=== PATIENT | female | born 1940 ===

== ENCOUNTER 2017-04-28 18:09 | Inpatient (IN) | payer MEDICARE, MEDICAID ==
[2017-04-28 18:20] VITALS: BMI 25.0
--- NOTE | 2017-04-28 19:01 | C.PDOC ---
History Of Present Illness Carol Natarajan is a 76 year old female, with a past medical history of HTN, pre-diabetes, and hypercholesterolemia, who was brought to the emergency department via EMS accompanied by family members for syncope episode prior to arrival. Patient reports she was having dinner when she began feeling dizzy and lightheaded before losing consciousness. Per family members, patient lost consciousness, her fingers clenched and her mouth opened, she was unresponsive for about 10 minutes. Patient reports a headache and difficulty breathing after episode but states she felt better after the EMT gave her O2. Family members state that patient was feeling cold before dinner, they thought she was going to get sick so they gave her a Nyquil. She denies any current headache, shortness of breathm or chest pain. No further medical complaints. PMD: None provided. Time Seen by Provider: 04/28/17 18:20 Chief Complaint (Nursing): Dizziness/Lightheaded History Per: Patient History/Exam Limitations: no limitations Onset/Duration Of Symptoms: Hrs (PARKING MANAGER) Current Symptoms Are (Timing): Better Number Of Syncopal Episodes: 1 Activity At Onset Of Symptoms: Had Just Stood up Associated Symptoms Preceding Syncopal Episode: Lightheadedness Fall Associated With With Symptoms: Yes Additional History Per: Family Past Medical History Reviewed: Historical Data, Nursing Documentation, Vital Signs Vital Signs: Last Vital Signs Temp 98.1 F 05/01/17 07:30 Pulse 79 05/01/17 10:54 Resp 20 05/01/17 07:30 BP 118/65 05/01/17 10:54 Pulse Ox 95 05/01/17 07:30 - Medical History PMH: Diabetes (pre-diabetes), HTN, Hypercholesterolemia Surgical History: No Surg Hx Family History: States: Unknown Family Hx - Social History Hx Tobacco Use: No Hx Alcohol Use: No Hx Substance Use: No - Immunization History Hx Tetanus Toxoid Vaccination: No Hx Influenza Vaccination: No Hx Pneumococcal Vaccination: No Review Of Systems Except As Marked, All Systems Reviewed And Found Negative. Constitutional: Negative for: Fever, Chills Cardiovascular: Negative for: Chest Pain Respiratory: Negative for: Cough, Shortness of Breath Gastrointestinal: Negative for: Nausea, Vomiting, Abdominal Pain, Diarrhea Neurological: Negative for: Weakness, Numbness Physical Exam - Physical Exam Appears: Well, Non-toxic, No Acute Distress Skin: Normal Color, Warm, Dry Head: Atraumatic, Normacephalic Eye(s): bilateral: Normal Inspection Oral Mucosa: Moist Neck: Supple Chest: Symmetrical, No Tenderness Cardiovascular: Rhythm Regular Respiratory: No Decreased Breath Sounds, No Accessory Muscle Use, No Rales, No Rhonchi, No Wheezing Gastrointestinal/Abdominal: Soft, No Tenderness, No Guarding, No Rebound Extremity: No Swelling Neurological/Psych: Oriented x3, Normal Speech, Normal Cognition, Other (no focal deficits) ED Course And Treatment - Laboratory Results Result Diagrams: 05/01/17 07:54 05/01/17 07:54 O2 Sat by Pulse Oximetry: 95 (RA) Pulse Ox Interpretation: Normal Medical Decision Making Medical Decision Making: EKG: Normal sinus rhythm. Rate: 79bpm. Normal axis, normal intervals. Disposition - Disposition Disposition: HOSPITALIZED Disposition Time: 22:16 Condition: STABLE - Clinical Impression Clinical Impression: Loss of consciousness - Scribe Statement Timmy Foster All medical record entries made by the Scribe were at my direction and personally dictated by me. I have reviewed the chart and agree that the record accurately reflects my personal performance of the history, physical exam, medical decision making, and the department course for this patient. I have also personally directed, reviewed, and agree with the discharge instructions and disposition.
[2017-04-28 19:22] LABS: BASO % 0.4 % (0.0-2.0); EOS # 0.1 K/uL (0.0-0.7); EOS % 1.5 % (0.0-4.0); HEMOGLOBIN 12.9 g/dL (11.0-16.0); LYMPH # 1.4 K/uL (1.0-4.3); LYMPH % 17.3 % (20.0-40.0); MEAN CELL VOLUME 85.9 fL (81.0-99.0); MEAN CORPUSCULAR HEMOGLOBIN 29.5 pg (27.0-31.0); MEAN CORPUSCULAR HGB CONC 34.4 g/dL (33.0-37.0); MEAN PLATELET VOLUME 7.5 fL (7.2-11.7); MONO # 1.1 K/uL (0.0-0.8); MONO % 13.1 % (0.0-10.0); NEUT # 5.6 K/uL (1.8-7.0); NEUT % 67.7 % (50.0-75.0); RBC 4.35 Mil/uL (3.80-5.20); RED CELL DISTRIBUTION WIDTH 13.7 % (11.5-14.5); WHITE BLOOD COUNT 8.3 K/uL (4.8-10.8)
[2017-04-28 19:32] LABS: SQUAMOUS EPITHIAL 5 /hpf (0-5); URINE BACTERIA RARE (<OCC); URINE BILIRUBIN NEGATIVE (NEGATIVE); URINE BLOOD 1+ (NEGATIVE); URINE CLARITY Clear (Clear); URINE COLOR Yellow (YELLOW); URINE GLUCOSE (UA) NORMAL (Normal); URINE LEUKOCYTE ESTERASE NEG Leu/uL (Negative); URINE NITRATE NEGATIVE (NEGATIVE); URINE PROTEIN NEGATIVE (NEGATIVE); URINE UROBILINOGEN NORMAL mg/dL (0.2-1.0)
[2017-04-28 19:35] LABS: ALBUMIN 4.2 g/dL (3.5-5.0); ALT/SGPT 27 U/L (9-52); AST/SGOT 36 U/L (14-36); BLOOD UREA NITROGEN 28 mg/dL (7-17); CALCIUM 8.8 mg/dl (8.6-10.4); GFR AFRICAN-AMERICAN 44; GFR NON-AFRICAN AMERICAN 36
--- NOTE | 2017-04-28 19:51 | CT ---
EXAM: CT Head Without Intravenous Contrast CLINICAL HISTORY: 76 years old, female; Signs and symptoms; Other: Loc TECHNIQUE: Axial computed tomography images of the head/brain without intravenous contrast. All CT scans at this facility use one or more dose reduction techniques, viz.: automated exposure control; ma/kV adjustment per patient size (including targeted exams where dose is matched to indication; i.e. head); or iterative reconstruction technique. Coronal and sagittal reformatted images were created and reviewed. COMPARISON: No relevant prior studies available. FINDINGS: Brain: Mild atrophy. No intracranial hemorrhage. No mass. Few scattered foci of decreased attenuation within periventricular/subcortical white matter. No definite edema. Ventricles: No hydrocephalus. Bones/joints: No acute fracture. Degenerative changes of temporomandibular joints. Soft tissues: Unremarkable. Vasculature: Atherosclerotic disease of intracranial arteries. Sinuses: Scattered minimal mucosal thickening. Mastoid air cells: No mastoid effusion. Orbits: Unremarkable as visualized. IMPRESSION: 1. Nonspecific white matter changes. Acute infarction may be CT occult within first 24 hours. If a focal deficit persists, consider followup CT or MRI for further evaluation. 2. Incidental/non-acute findings are described above.
[2017-04-28] MEDS ORDERED: Sodium Chloride 0.9% 1,000 ML IV ONE (20:36)
[2017-04-28] MEDS ORDERED: Potassium Chloride 20 mEq ER Tab PO STA (20:37)
[2017-04-28] MEDS ORDERED: Potassium Chloride 20 mEq ER Tab PO ONE (20:49)
[2017-04-29 03:03] VITALS: RESP 20
[2017-04-29] MEDS: (Novolin R) Insulin Human Regular 100 units/ml vial SC SCH ×6 (08:05→21:56)
[2017-04-29 08:26] LABS: BASO % 0.5 % (0.0-2.0); EOS # 0.2 K/uL (0.0-0.7); EOS % 3.5 % (0.0-4.0); HEMOGLOBIN 11.6 g/dL (11.0-16.0); LYMPH # 1.8 K/uL (1.0-4.3); LYMPH % 31.4 % (20.0-40.0); MEAN CELL VOLUME 87.5 fL (81.0-99.0); MEAN CORPUSCULAR HEMOGLOBIN 29.7 pg (27.0-31.0); MEAN CORPUSCULAR HGB CONC 33.9 g/dL (33.0-37.0); MEAN PLATELET VOLUME 8.4 fL (7.2-11.7); MONO # 0.9 K/uL (0.0-0.8); MONO % 15.3 % (0.0-10.0); NEUT # 2.8 K/uL (1.8-7.0); NEUT % 49.3 % (50.0-75.0); RBC 3.92 Mil/uL (3.80-5.20); WHITE BLOOD COUNT 5.7 K/uL (4.8-10.8)
[2017-04-29 09:03] LABS: ALB/GLOB RATIO 1.1 (1.0-2.1); ALBUMIN 3.9 g/dL (3.5-5.0); ALT/SGPT 28 U/L (9-52); AST/SGOT 32 U/L (14-36); BLOOD UREA NITROGEN 22 mg/dL (7-17); CALCIUM 8.3 mg/dl (8.6-10.4); GFR AFRICAN-AMERICAN 53; GFR NON-AFRICAN AMERICAN 44; HDL CHOLESTEROL 39 mg/dL (30-70); MAGNESIUM 1.7 mg/dL (1.6-2.3)
[2017-04-29 09:04] LABS: LDL CHOLESTEROL 105 mg/dL (0-129)
--- NOTE | 2017-04-29 11:17 | CP.PCM.PN ---
Subjective - Date & Time of Evaluation Date of Evaluation: 04/29/17 Time of Evaluation: 11:20 - Subjective Subjective: [facility] #[id number] Objective - Vital Signs/Intake and Output Vital Signs (last 24 hours): Temp Pulse Resp BP Pulse Ox 98.9 F 93 H 20 119/67 99 04/29/17 08:24 04/29/17 08:24 04/29/17 08:24 04/29/17 08:24 04/29/17 08:24 Intake and Output: 04/29/17 04/29/17 06:59 18:59 Intake Total 240 Balance 240 - Medications Medications: Current Medications Amlodipine Besylate (Norvasc) 10 mg PO DAILY [facility] Last Admin: 04/29/17 10:56 Dose: 10 mg Aspirin (Aspirin) 325 mg PO DAILY [facility] Last Admin: 04/29/17 10:56 Dose: 325 mg Glimepiride (Amaryl) 1 mg PO DAILY [facility] Last Admin: 04/29/17 09:00 Dose: Not Given Insulin Human Regular (Novolin R) 1 unit SC [facility] PRN Reason: Protocol Last Admin: 04/29/17 08:05 Dose: Not Given Losartan Potassium (Cozaar) 50 mg PO DAILY [facility] Last Admin: 04/29/17 10:56 Dose: 50 mg - Labs Labs: 04/29/17 08:12 04/29/17 08:12
--- NOTE | 2017-04-29 12:27 | RAD ---
PROCEDURE: CHEST RADIOGRAPH, 1 VIEW HISTORY: syncope COMPARISON: None available. FINDINGS: LUNGS: Clear. PLEURA: No pneumothorax or pleural fluid seen. CARDIOVASCULAR: Normal. OSSEOUS STRUCTURES: No significant abnormalities. VISUALIZED UPPER ABDOMEN: Normal. OTHER FINDINGS: None. IMPRESSION: No active disease.
--- NOTE | 2017-04-30 00:17 | HP ---
CHIEF COMPLAINT: Patient had loss of consciousness for about 8 to 10 minutes as per the patient's family yesterday while getting up from the dinner table. HISTORY OF PRESENT ILLNESS: Ms. Otilia Natarajan is a 76-year-old female with past medical history of hypertension, diabetes mellitus who has been following up with doctors from [place], was visiting family in [place] yesterday while this happened. All the history obtained from the patient's daughter who is at bedside as the patient speaks only Bulgarian. As per the patient's daughter, on her way to [place], she was complaining of feeling cold as the patient's and other family members were suffering from flu all week. They gave the patient NyQuil in the afternoon; she slept for two hours; she woke up around 5 p.m., was having dinner around 5 p.m., sitting at the table while she was getting up from the dinner table; she was complaining of heaviness in the head and lightheaded and dizziness and she was slumping over at which point family member got her and put her in a chair. She was unconscious for about 8 to 10 minutes as per the family member. Denied any urinary incontinence or tongue bite, but family members claim that her fingers were contracted and mouth was tight and biting her teeth. Denied any incontinence. Patient felt that she blacked out and did not aware of the surroundings when the 911 came. Patient was awake after 8 to 10 minutes. Patient started complaining of heaviness in the head and dizziness and she felt like she was spinning around. Denied any nausea, vomiting. Denied any chest pain, shortness of breath, or wheezing. Denied any urinary complaints. Denied any leg pains or leg cramps. Denied any other neurologic symptoms. Denied any other symptoms after waking up. She felt dizzy and heaviness in the head until last night and this morning, she is feeling much better. Denied any other complaints this morning. Able to ambulate to the bathroom without assistance. PAST MEDICAL HISTORY: As described, hypertension, diabetes mellitus, hyperlipidemia, questionable kidney problem, following up with the electronic health records specialist in the city. PAST SURGICAL HISTORY: Denies any past surgical history. FAMILY HISTORY: Family history of coronary artery disease in the sister. Mother from uterine cancer. PERSONAL HISTORY: She is , having three children, retired. Living with her and the daughter. SOCIAL HISTORY: Denies smoking, alcohol, or any other drug abuse. ALLERGIES: NO KNOWN DRUG ALLERGIES. MEDICATIONS: Amlodipine 10 mg daily, losartan 50 mg daily, glimepiride 1 mg daily. REVIEW OF SYSTEMS: As described in history of present illness. All other systems reviewed and were found to be negative. PHYSICAL EXAMINATION: GENERAL: Elderly female, lying in bed, in no acute distress. VITAL SIGNS: Blood pressure 119/67, pulse 93, respirations 20, temperature 98.9 degrees Fahrenheit, O2 sat 99% on 2 L nasal cannula. HEENT: Pupils are equal, round, and reacting to light and accommodation. Extraocular muscles intact. No icterus. No pallor. No oral thrush. No pharyngeal congestion. NECK: Supple. No JVD. No thyromegaly. CHEST: Moving equally bilaterally on respiration. LUNGS: Bilateral vesicular breath sounds. No wheezing, no rhonchi. CARDIOVASCULAR SYSTEM: S1 and S2 present, regular. ABDOMEN: Soft, nontender, bowel sounds present. No guarding, no rigidity, no rebound tenderness noted. CENTRAL NERVOUS SYSTEM: Alert, awake, oriented x3. No focal deficits noted. EXTREMITIES: No edema. Palpable peripheral pulses. LABORATORY DATA: Her labs from ED, WBC 8.3, hemoglobin 12.9, hematocrit 37.4, platelets 271. Sodium 131, potassium 3.2, chloride 93, bicarb 28, BUN 28, creatinine 1.4, glucose 105, calcium 8.8. Total bilirubin 0.5, AST 36, ALT 27, alkaline phosphatase 73. Cardiac enzymes negative. Total protein 8.5, albumin 4.2. Triglycerides 109, cholesterol 182, LDL 104, HDL 39. UA: 1+ blood, rbc 6, otherwise negative. Chest x-ray done from ED, no active disease. CT scan of the head, nonspecific white matter changes, atherosclerotic disease of intracranial arteries. EKG, normal sinus rhythm at 79 beats per minute. No acute STT changes noted. ASSESSMENT AND PLAN: Elderly female with history of hypertension, diabetes mellitus, chronic kidney disease, hyperlipidemia who has been following up with doctors from [place], was complaining of cold-like symptoms. Patient was given NyQuil and after two hours of sleep, she woke up; while sitting at the dinner table and she stood up, she had an episode of sudden loss of consciousness associated with heaviness in the head and lasted for 10 minutes. Patient complaining of heaviness in the head even after she as aware of the surroundings. Patient is being admitted for further management. 1. Prolonged loss of consciousness, rule out syncope versus seizure, rule out secondary to NyQuil, rule out other causes. 2. Mild hypokalemia. 3. History of hypertension. 4. History of diabetes mellitus. 5. History of chronic kidney disease. PLAN: Patient is being admitted to telemetry. We will do neuro checks, serial EKGs. Check echocardiogram. We will check EEG. Initial CT is negative. We will restart her home medications. Her blood pressure is controlled. We will give aspirin 325 mg p.o. daily. Accu-Cheks q.a.c. and at bedtime. Deep venous thrombosis prophylaxis with heparin. We will obtain Neurology evaluation with Dr. James. We will do echocardiogram, carotid Doppler. We will add further recommendation as her clinical course progresses. Fly Quan MD
--- NOTE | 2017-04-30 01:02 | CON ---
NEUROLOGY CONSULTATION DATE: REQUESTING PHYSICIAN: Dr. Quan. REASON FOR CONSULTATION: Syncopal episode. HISTORY OF PRESENT ILLNESS: The patient is a 76-year-old lady with past medical history of hypertension, diabetes mellitus, hyperlipidemia, who was brought to the emergency room because of syncopal episode by the family, witnessed by daughter and son-in-law. The patient's daughter states that she was not feeling well before the episode. She was feeling cold when everybody was hot in the room, and she was given NyQuil a few hours before, and the patient while she was having dinner, she felt dizzy and when she tried to stand up, felt like she collapse and lost her consciousness. As per family, the patient's loss of consciousness associated with stiffness of her upper extremities and cramping of the upper extremities without jerky movement of the upper extremities, and she was out, not responding to questions, approximately lasting more than 10 minutes. The patient was complaining of shortness of breath and headache after the episode. The patient was anxious and scared after the episode, and then gradually after the arrival of EMT, the patient was given oxygen, and the patient immediately felt better. This is the first episode ever she had in her life of loss of consciousness, no seizures in the past. Denies history of headache, although patient is complaining of arthritis as well, complaining of knee pain on and off. PAST MEDICAL HISTORY: As mentioned above. SOCIAL HISTORY: Denies smoking, ethanol, or drug abuser. ALLERGIES: NO KNOWN ALLERGIC REACTIONS TO MEDICATIONS. MEDICATIONS: Glimepiride, aspirin, losartan, heparin, amlodipine, insulin. REVIEW OF SYSTEMS: As per H and P and ER notes, reviewed. PHYSICAL EXAMINATION: VITAL SIGNS: Blood pressure 181/74, pulse 95, respirations 18, temperature 98.7. MENTAL STATUS: The patient is alert, awake, and oriented x3. Although the patient's daughter was translating, the patient is Hungarian speaking. Normal naming, repetition, and comprehension. No agnosia. No apraxia. No right to left confusion or finger agnosia. CRANIAL NERVES: Pupils 2 mm, bilaterally reactive. Status post left eye cataract surgery. There is a mild cataract in the right eye. No field defect. Tongue midline. Gag intact. Accessory nerve intact. No hearing deficit. MOTOR: Normal tone in upper and lower extremities. No pronator drift. No tremors, action, rest and postural. No myoclonus. No vesiculation. Upper extremities deltoid, elbow and occupational therapy director 5/5. Lower extremities, hip flexion, knee flexion, extension and ankle 5/5. Deep tendon reflexes are 1 in upper extremities, absent at the knee and ankles, plantar flexion. SENSORY: Pinprick, light touch intact. Coordination: [id number] intact. Romberg is negative. The patient is able to stand on one foot. LABORATORY DATA: White blood cells 5.7, red blood cells 3.92, hemoglobin 11.6, hematocrit 34. Sodium 131, potassium 3.2, chloride 93, carbon dioxide 28, anion gap 14, BUN 28, creatinine 1.4. IMAGING DATA: CAT scan of the brain reviewed. I have reviewed the CAT scan of the brain, did not reveal significant findings except for very minimal periventricular white matter disease. IMPRESSION: Syncopal episode probably secondary to postural hypotension causing patient spastic upper extremities. I doubt that if it is a seizure, tonic seizure. The patient had NyQuil before the episode and patient was dizzy, and the episode started when she changed position from sitting to standing; in addition, the patient's blood pressure was on low side at admission. CAT scan negative. Carotid Doppler and EEG has been requested. Above discussed with the daughter who is translating at length. All her questions and concerns were answered at length. Thank you for the consultation, and Dr. James will follow up the patient tomorrow. Werner Walker MD
[2017-04-30] MEDS: (Novolin R) Insulin Human Regular 100 units/ml vial SC SCH ×4 (07:12→21:40)
--- NOTE | 2017-04-30 08:50 | PN ---
DATE: 04/30/2017 NEUROLOGICAL PROBLEM: Syncopal attack related to viral syndrome. PHYSICAL EXAMINATION: VITAL SIGNS: Blood pressure 117/68, mean artery pressure of 84, respiratory rate 16, and temperature afebrile. NEUROLOGICAL: The patient was seen by Dr. Walker over the weekend for the syncopal attack. His consideration is appreciated and workup is in progress. At present, the patient is communicable only in Ukrainian. She is awake, alert, oriented to person, place and time. Speech is clear. Naming, repetition, fluency, comprehension all within normal. She moves all 4 extremities against the gravity. No right and left confusion. Cranial nerve examination grossly intact. Motor examination, 5/5. Deep tendon reflexes are trace. Plantars are downgoing. Sensory examination grossly intact as well. The patient is ambulatory on her own. Her recommended investigations are still pending. The patient should be hydrated well. The patient seems to be diabetic and diet control should be followed. From neurological point of view, the patient was placed on aspirin that has to be continued for now. The patient will be followed while she is in the hospital. Cameron James MD
--- NOTE | 2017-04-30 13:26 | CP.PCM.PN ---
Subjective - Date & Time of Evaluation Date of Evaluation: 04/30/17 Time of Evaluation: 13:40 - Subjective Subjective: Progress note dictated #[id number] Objective - Vital Signs/Intake and Output Vital Signs (last 24 hours): Temp Pulse Resp BP Pulse Ox 98.2 F 95 H 20 114/67 95 04/30/17 07:20 04/30/17 11:55 04/30/17 07:20 04/30/17 09:26 04/30/17 07:20 Intake and Output: 04/30/17 04/30/17 06:59 18:59 Intake Total 500 Balance 500 - Medications Medications: Current Medications Amlodipine Besylate (Norvasc) 10 mg PO DAILY [facility] Last Admin: 04/30/17 09:29 Dose: 10 mg Aspirin (Aspirin) 325 mg PO DAILY [facility] Last Admin: 04/30/17 09:30 Dose: 325 mg Glimepiride (Amaryl) 1 mg PO DAILY [facility] Last Admin: 04/30/17 09:30 Dose: 1 mg Heparin Sodium (Porcine) (Heparin) 5,000 units SC Q12H [facility] Last Admin: 04/30/17 11:26 Dose: 5,000 units Insulin Human Regular (Novolin R) 0 unit SC ACHS [facility] PRN Reason: Protocol Last Admin: 04/30/17 11:14 Dose: Not Given Losartan Potassium (Cozaar) 50 mg PO DAILY [facility] Last Admin: 04/30/17 09:30 Dose: 50 mg - Labs Labs: 04/29/17 08:12 04/29/17 08:12 APTT 33 SECONDS (21-34) 04/29/17 13:29
--- NOTE | 2017-04-30 23:31 | CARD ---
APPROVED REPORT EKG Measurement Heart [id number] <Conclusion> Normal sinus rhythm Normal ECG
--- NOTE | 2017-05-01 01:42 | PN ---
DATE: 04/30/2017 SUBJECTIVE: The patient was seen and examined at bedside. Patient is feeling much better. Denies any dizziness. Denies any new episodes of loss of consciousness, has been ambulating. REVIEW OF SYSTEMS: All other systems reviewed and were found to be negative. PHYSICAL EXAMINATION: GENERAL: An elderly female lying in bed in no acute distress. VITAL SIGNS: Blood pressure 101/55, pulse 78, respirations 20, temperature 98.1 degree Fahrenheit, O2 sat 95% on room air. HEENT: Pupils equal, round, reacting to light and accommodation. Extraocular muscles are intact. No icterus. No pallor. No oral thrush. No pharyngeal congestion. NECK: Supple. No JVD. LUNGS: Bilateral vesicular breath sounds. No wheezing. No rhonchi. CARDIOVASCULAR SYSTEM: S1 and S2 present, regular. ABDOMEN: Soft, nontender. Bowel sounds present. No guarding. No rigidity. No rebound tenderness noted. CENTRAL NERVOUS SYSTEM: Alert, awake, oriented x3. No focal deficits noted. EXTREMITIES: No edema. Palpable peripheral pulses. MEDICATIONS: Include Norvasc 10 mg daily, aspirin 325 mg daily, Amaryl 1 mg p.o. daily, heparin 5000 units subcutaneous q. 12 hours, losartan 50 mg p.o. daily. Accu-Cheks 101, 113, 146, 83, 105. EKG results pending. Carotid Doppler pending. EEG not done yet. ASSESSMENT AND PLAN: An elderly female with history of hypertension, diabetes mellitus, hyperlipidemia, chronic kidney disease, admitted for syncope versus seizure after taking NyQuil. Patient's neurologic workup is in progress. Echo, carotid Doppler results pending. EEG is not done. Her Accu-Cheks are fair. Blood pressure is slightly low this afternoon. We will continue with current medications. Neurology consult and followup appreciated. We will follow up with the pending results. If patient is hemodynamically stable and cleared neurologically, we will plan discharging the patient home in a.m. Fly Quan MD
[2017-05-01] MEDS: (Novolin R) Insulin Human Regular 100 units/ml vial SC SCH ×2 (07:33→12:00)
[2017-05-01 08:08] LABS: BASO % 0.4 % (0.0-2.0); EOS # 0.3 K/uL (0.0-0.7); EOS % 5.9 % (0.0-4.0); HEMOGLOBIN 11.6 g/dL (11.0-16.0); LYMPH # 2.3 K/uL (1.0-4.3); LYMPH % 48.5 % (20.0-40.0); MEAN CELL VOLUME 86.8 fL (81.0-99.0); MEAN CORPUSCULAR HEMOGLOBIN 29.3 pg (27.0-31.0); MEAN CORPUSCULAR HGB CONC 33.7 g/dL (33.0-37.0); MEAN PLATELET VOLUME 8.1 fL (7.2-11.7); MONO # 0.6 K/uL (0.0-0.8); MONO % 11.6 % (0.0-10.0); NEUT # 1.6 K/uL (1.8-7.0); NEUT % 33.6 % (50.0-75.0); RBC 3.97 Mil/uL (3.80-5.20); RED CELL DISTRIBUTION WIDTH 13.8 % (11.5-14.5); WHITE BLOOD COUNT 4.8 K/uL (4.8-10.8)
[2017-05-01 08:19] LABS: ALBUMIN 3.6 g/dL (3.5-5.0); ALT/SGPT 26 U/L (9-52); AST/SGOT 28 U/L (14-36); BLOOD UREA NITROGEN 22 mg/dL (7-17); CALCIUM 8.1 mg/dl (8.6-10.4); GFR AFRICAN-AMERICAN > 60; GFR NON-AFRICAN AMERICAN 54
[2017-05-01 08:23] VITALS: TEMP 98.1; O2SAT 95
--- NOTE | 2017-05-01 09:37 | PN ---
DATE: 05/01/2017 NEUROLOGICAL PROBLEM: Status post syncopal episode, probably drug induced. PHYSICAL EXAMINATION: VITAL SIGNS: Blood pressure 106/63, mean arterial pressure of 77, respiratory rate 18, temperature 98.3, pulse rate 91. ASSESSMENT AND PLAN: The patient is up, already talking with her friend over the phone. No new episodes happened from neurological point of view or cardiac point of view. The patient is hemodynamically stable. Recommended electroencephalogram is still pending. At this point, no need to keep her just for electroencephalogram in the hospital. The patient could be having this test as outpatient. Probably, I do recommend extended or ambulatory EEG. In the meantime, no further intervention is needed from neurological point of view. If medically stable, the patient can be discharged and should have followup visit with her own neurologist. Cameron James MD
[2017-05-01] MEDS ORDERED: Potassium Chloride 20 mEq ER Tab PO ONE (10:00)
--- NOTE | 2017-05-01 10:50 | VASCLAB ---
PROCEDURE: HISTORY: syncope COMPARISON: None available. TECHNIQUE: Grayscale and duplex Doppler evaluation of the cervical carotid and vertebral arteries were performed. The common carotid, carotid bifurcations and cervical Internal Carotid Artery (ICA) and proximal External Carotid Artery (ECA) were evaluated. The vertebral arteries were evaluated for gross patency and flow direction. Report prepared by Ziggy Dalal, BS, RVT FINDINGS: RIGHT CAROTID ARTERIES: 1. Common Carotid Artery: No significant focal plaque formation of the right common carotid artery. Maximum Peak Systolic velocity: 108 cm/sec: End-diastolic velocity 21 cm/sec. 2. Carotid Bifurcation: plaque formation. Maximum Peak Systolic velocity: 61 cm/sec: End-diastolic velocity 16 cm/sec. 3. Internal Carotid Artery: Plaque description: 3.1. Proximal Segment: Peak systolic velocity 78 cm/sec: End-diastolic velocity 24 cm/sec - % stenosis 0-15% 3.2. Middle Segment: Peak systolic velocity 81 cm/sec: End-diastolic velocity 25 cm/sec - % stenosis 0-15% 3.3. Distal Segment: Peak systolic velocity 51 cm/sec: End-diastolic velocity 17 cm/sec - % stenosis 0-15% 4. External Carotid Artery: No significant focal plaque formation. Peak systolic velocity 155 cm/sec 5. ICA/CCA Ratio: 1.2 LEFT CAROTID ARTERIES: 1. Common Carotid Artery: No significant focal plaque formation of the left common carotid artery. Maximum Peak Systolic velocity: 75 cm/sec: End-diastolic velocity 19 cm/sec. 2. Carotid Bifurcation: plaque formation. Maximum Peak Systolic velocity: 116 cm/sec: End-diastolic velocity 24 cm/sec. 3. Internal Carotid Artery: Plaque description: 3.1. Proximal Segment: Peak systolic velocity 85 cm/sec: End-diastolic velocity 22 cm/sec - % stenosis 0-15% 3.2. Middle Segment: Peak systolic velocity 94 cm/sec: End-diastolic velocity 33 cm/sec - % stenosis 0-15% 3.3. Distal Segment: Peak systolic velocity 93 cm/sec: End-diastolic velocity 26 cm/sec - % stenosis 0-15% 4. External Carotid Artery: No significant focal plaque formation. Peak systolic velocity 149 cm/sec 5. ICA/CCA Ratio: 1.6 VERTEBRAL ARTERIES: 1. Right Vertebral Artery: The right vertebral artery flow direction is antegrade. 2. Left Vertebral Artery: The left vertebral artery flow direction is antegrade. OTHER FINDINGS: 1. Right Brachial Blood pressure: 124 mmHg. 2. Left Brachial Blood pressure: 128 mmHg. IMPRESSION: RIGHT: Duplex scan does not suggest hemodynamically significant stenosis of the right extracranial carotid arteries. LEFT: Duplex scan does not suggest hemodynamically significant stenosis of the left extracranial carotid arteries.
--- NOTE | 2017-05-01 10:51 | CP.PCM.PN ---
Subjective - Date & Time of Evaluation Date of Evaluation: 05/01/17 Time of Evaluation: 10:40 - Subjective Subjective: Discharge summary dictated #[id number] Objective - Vital Signs/Intake and Output Vital Signs (last 24 hours): Temp Pulse Resp BP Pulse Ox 98.1 F 77 20 121/66 95 05/01/17 07:30 05/01/17 08:00 05/01/17 07:30 05/01/17 07:30 05/01/17 07:30 Intake and Output: 05/01/17 05/01/17 06:59 18:59 Intake Total 600 Balance 600 - Medications Medications: Current Medications Amlodipine Besylate (Norvasc) 10 mg PO DAILY [facility] Last Admin: 04/30/17 09:29 Dose: 10 mg Aspirin (Aspirin) 325 mg PO DAILY [facility] Last Admin: 04/30/17 09:30 Dose: 325 mg Glimepiride (Amaryl) 1 mg PO DAILY [facility] Last Admin: 04/30/17 09:30 Dose: 1 mg Heparin Sodium (Porcine) (Heparin) 5,000 units SC Q12H [facility] Last Admin: 04/30/17 22:38 Dose: 5,000 units Insulin Human Regular (Novolin R) 0 unit SC ACHS [facility] PRN Reason: Protocol Last Admin: 05/01/17 07:33 Dose: Not Given Losartan Potassium (Cozaar) 50 mg PO DAILY [facility] Last Admin: 04/30/17 09:30 Dose: 50 mg - Labs Labs: 05/01/17 07:54 05/01/17 07:54 APTT 33 SECONDS (21-34) 04/29/17 13:29
[2017-05-01 10:55] VITALS: BP 118/65; PULSE 79
--- NOTE | 2017-05-01 11:56 | CARD ---
APPROVED REPORT EXAM: Two-dimensional and M-mode echocardiogram with Doppler and color Doppler. Other Information Quality : GoodRhythm : INDICATION Syncope DIZZINESS RISK FACTORS Hypertension Hyperlipidemia Diabetes 2D DIMENSIONS IVSd1.3 (0.7-1.1cm)LVDd3.2 (3.9-5.9cm) PWd0.9 (0.7-1.1cm)LVDs2.3 (2.5-4.0cm) FS (%) 29.8 %LVEF (%)58.3 (>50%) M-Mode DIMENSIONS RVDd2.16 (2.1-3.2cm)Left Atrium (MM)3.19 (2.5-4.0cm) IVSd1.12 (0.7-1.1cm)Aortic Root2.71 (2.2-3.7cm) LVDd3.43 (4.0-5.6cm)Aortic Cusp Exc.1.69 (1.5-2.0cm) PWd1.03 (0.7-1.1cm)FS (%) 57 % LVDs1.49 (2.0-3.8cm)LVEF (%)88 (>50%) Aortic Valve AI P 1/2 [id number] Mitral Valve MV E Qgjsopev80.1cm/sMV A Beimaxjm24.2cm/sE/A ratio0.6 TDI E/Lateral E'0.0E/Medial E'0.0 Tricuspid Valve TR Peak [id number]/sTR Peak Gr.[id number] LEFT VENTRICLE The left ventricle is normal size. There is normal left ventricular wall thickness. Left ventricle systolic function is normal. The Ejection Fraction is 55-60%. There is normal LV segmental wall motion. Tissue Doppler imaging reveals abnormal left ventricular diastolic dysfunction. RIGHT VENTRICLE The right ventricle is normal size. There is normal right ventricular wall thickness. The right ventricular systolic function is normal. ATRIA The left atrium size is normal. The right atrium size is normal. The interatrial septum is intact with no evidence for an atrial septal defect. AORTIC VALVE The aortic valve is normal in structure. There is trace aortic regurgitation. There is no aortic valvular stenosis. There is no aortic valvular vegetation. MITRAL VALVE The mitral valve is normal in structure. There is no evidence of mitral valve prolapse. There is no mitral valve stenosis. There is no mitral valve regurgitation noted. TRICUSPID VALVE The tricuspid valve is normal in structure. There is mild tricuspid regurgitation. Right ventricular systolic pressure is estimated at less than 30 mmHg. There is no pulmonary hypertension. PULMONIC VALVE The pulmonic valve is not well visualized. There is mild pulmonic valvular regurgitation. GREAT VESSELS The aortic root is normal in size. PERICARDIAL EFFUSION There is no significant pericardial effusion. <Conclusion> Left ventricle systolic function is normal. The Ejection Fraction is 55-60%. Diastolic dysfunction. There is trace aortic regurgitation. There is no mitral valve regurgitation noted. There is mild tricuspid regurgitation. There is no pulmonary hypertension. There is mild pulmonic valvular regurgitation.
--- NOTE | 2017-05-01 13:54 | CP.PCM.PN ---
Subjective - Date & Time of Evaluation Date of Evaluation: 05/01/17 Time of Evaluation: 13:54 - Subjective Subjective: PATIENT WAS ADMITTED FOR SYNCOPE; AAOX3; FAMILY AT THE BEDSIDE DENIES CHEST PAIN , SOB, OR PALPITATION NO SIGN OF DISTRESS NOTED Objective - Vital Signs/Intake and Output Vital Signs (last 24 hours): Temp Pulse Resp BP Pulse Ox 98.1 F 79 20 118/65 95 05/01/17 07:30 05/01/17 10:54 05/01/17 07:30 05/01/17 10:54 05/01/17 07:30 Intake and Output: 05/01/17 05/01/17 06:59 18:59 Intake Total 600 Balance 600 - Medications Medications: Current Medications Amlodipine Besylate (Norvasc) 10 mg PO DAILY [facility] Last Admin: 05/01/17 10:55 Dose: 10 mg Aspirin (Aspirin) 325 mg PO DAILY [facility] Last Admin: 05/01/17 10:55 Dose: 325 mg Glimepiride (Amaryl) 1 mg PO DAILY [facility] Last Admin: 05/01/17 10:55 Dose: 1 mg Heparin Sodium (Porcine) (Heparin) 5,000 units SC Q12H [facility] Last Admin: 05/01/17 10:55 Dose: 5,000 units Insulin Human Regular (Novolin R) 0 unit SC ACHS [facility] PRN Reason: Protocol Last Admin: 05/01/17 07:33 Dose: Not Given Losartan Potassium (Cozaar) 50 mg PO DAILY [facility] Last Admin: 05/01/17 10:55 Dose: 50 mg - Labs Labs: 05/01/17 07:54 05/01/17 07:54 APTT 33 SECONDS (21-34) 04/29/17 13:29 Assessment and Plan - Assessment and Plan (Free Text) Assessment: PATIENT IS SEEN AND EXAMINED AT THE BEDSIDE LUNG SOUND CLEAR; NO BRUIT NOTED AT THE CAROTID SARAH PATIENT COME POST EEG; ECHO IS NORMAL CAROTID DOPPLER SHOW A 0-15% STENOSIS DISCUSS WITH DR STEPHENS AND DR MYERS WHO AGREE AND CLEAR PATIENT TO DC AND F/U OUT PATIENT FOR THE RESULT FOLLOW UP WITH DR MYERS IN 1-2 WEEKS AT HER OFFICE---CALL FOR TO CONFIRM YOUR APPOINTMENT ADDRESS YOUR EEG REPORT AT HER OFFICE OUT PATIENT FOLLOW WITH DR STEPHENS OR YOUR OWN NEUROLOGIST CONTINUE ALL YOUR HOME MEDICATION NEW PRESCRIPTION GIVEN: ASPIRIN 325 MG BY MOUTH DAILY CALL DR MYERS OR GO TO THE EMERGENCY ROOM IF SYMPTOMS RETURN OR WORSENING DISCUSS WITH PATIENT AND PATIENT' SON ARTHUR ON THE PHONE WHO AGREE AND VERBALIZED UNDERSTANDING
--- NOTE | 2017-05-02 05:57 | DS ---
DISCHARGE DIAGNOSES: Status post syncope versus seizure, rule out secondary to medication, status post hypokalemia, history of hypertension, history of diabetes mellitus, history of chronic kidney disease. HISTORY OF PRESENT ILLNESS: Ms. Bingham is a 76-year-old female with past medical history of hypertension, diabetes mellitus, following up with doctors from [place], visiting family in [place], felt congested. She was given nitro by family. After a while, she felt very dizzy, lightheaded and passed out for about 10 minutes as per the patient at the dining table. So family called 911 and patient was brought to the Emergency Room. After she came into the ED, patient was fully aware of the surroundings. Other than dizziness, patient was admitted for further evaluation and management. Today, patient is feeling better, denies any headache or dizziness, denies any chest pain, shortness of breath or wheezing, denies any nausea, vomiting, abdominal pain, diarrhea or constipation. Denies any urinary complaints, denies any leg pains or leg cramps. All other systems reviewed and were found to be negative. PHYSICAL EXAMINATION: GENERAL: Elderly female, lying in bed in no acute distress. VITAL SIGNS: Blood pressure 121/66, pulse 76, respirations 20, temperature 98.1 degrees Fahrenheit, O2 sat 95% on room air. HEENT: Pupils equal, round, reacting to light and accommodation. Extraocular muscles are intact. No icterus. No pallor. No oral thrush. No pharyngeal congestion. No nasal congestion. NECK: Supple. No JVD. No thyromegaly. CHEST: Moving equally bilaterally on respiration. LUNGS: Bilateral vesicular breath sounds. No wheezing. No rhonchi. CARDIOVASCULAR: S1 and S2 present. Regular. ABDOMEN: Soft, nontender. Bowel sounds are present. No guarding. No rigidity. No rebound tenderness noted. CENTRAL NERVOUS SYSTEM: Alert, awake, and oriented x3. No focal deficits noted. EXTREMITIES: No edema. Palpable peripheral pulses. LABORATORY DATA: From this morning, WBC 12.8, hemoglobin 11.6, hematocrit 34.5, platelets 222. Sodium 134, potassium 3.5, chloride 101, bicarb 27, BUN 22, creatinine 1.0, glucose 117, calcium 8.1, total bilirubin 0.3, AST 28, ALT 26, alkaline phosphatase 75, total protein 7.4, albumin 3.6. On admission, cardiac enzymes x3 were negative. Hemoglobin A1c 6.7, triglycerides 109, cholesterol 182, LDL 105, HDL 39. Admission chest x-ray was negative. Head CT negative. Carotid Doppler negative. EEG was not done. Echocardiogram shows EF 55% to 60%, diastolic dysfunction, left ventricular systolic function normal, trace aortic regurgitation, no mitral valve regurgitation, no pulmonary hypertension, mild pulmonic valve regurgitation, and tricuspid regurgitation - mild. HOSPITAL COURSE: Patient was admitted to the hospital for syncope versus seizure. Patient was evaluated by Neurology. EEG was not done while patient was in the hospital. Patient remained hemodynamically stable and no further episodes of loss of consciousness noted. While awaiting for EEG, patient's symptomatology improved without any dizziness. As EEG can be done as an outpatient, patient was cleared by Neurology. Discussed the same with the patient, patient's family, patient's son at bedside. Also spoke to patient's son-in-law over the phone and explained to him regarding the patient's medical condition and the need for EEG as outpatient. I spoke to patient's son-in-law at the patient's request, explained the need for followup with primary care physician and Neurology as outpatient. As patient is otherwise hemodynamically stable, patient is discharged. Advised patient to return to Emergency Department if any symptoms recur. Advised her to continue her home medications. CONDITION UPON DISCHARGE: Patient is alert, awake, oriented x3 and hemodynamically stable at the time of discharge. DISCHARGE DIET: Low-sodium, low-cholesterol 1800-calorie ADA diet. ACTIVITY: As tolerated. DISCHARGE MEDICATIONS: Amlodipine 10 mg daily, glimepiride 1 mg daily, losartan 50 mg daily, aspirin 325 mg daily. DISCHARGE INSTRUCTIONS: Follow up with PMD. Follow up with Neurology. Need patient EEG. Fly Quan MD
--- NOTE | 2017-05-02 13:27 | EEG ---
DATE: 05/01/2017 This is a 16-channel electroencephalogram of awake and drowsy adult. During the study, photic stimulation was performed. Hyperventilation was not performed. The resting electroencephalogram consists of 30 to 40 microvolt diffuse 9 to 11 Hz alpha activity seen at parietal and occipital leads. Anteriorly, fast activity superimposed with 2 to 3 Hz delta activity is seen. The background alpha activity is symmetrically attenuated with eye opening. The photic stimulation did not evoke driving response noted at 2 to 20 Hz. IMPRESSION: This is a normal electroencephalogram of an awake and drowsy adult. During the study, neither electroencephalographic paroxysmal activities nor focal slowing noted. Cameron James MD
== END 2017-05-01 16:15 | disposition home or self-care (01) | DRG 312 ==
LOC: C.ER 18:09 → C.5S 22:16 → C.9E 22:16 → OBSVTOIN 04-30 15:01
PROVIDERS: ADMIT Internal Medicine; ATTEND Internal Medicine
DX: R55 Syncope and collapse (principal); T48.5X5A Adverse effect of other anti-common-cold drugs, initial encounter; B34.9 Viral infection, unspecified; I95.1 Orthostatic hypotension; E11.22 Type 2 diabetes mellitus with diabetic chronic kidney disease; I12.9 Hypertensive chronic kidney disease with stage 1 through stage 4 chronic kidney disease, or unspecified chronic kidney disease; N18.9 Chronic kidney disease, unspecified; E87.6 Hypokalemia; E78.5 Hyperlipidemia, unspecified; E78.00 Pure hypercholesterolemia, unspecified